=== PATIENT | female | born 1960 | race Caucasian/White ===

== ENCOUNTER 2019-11-28 12:33 | Outpatient (CLI) | payer BC, SELFPAY ==
--- NOTE | ~2019-11-28 | MMUS_ITS ---
EXAMINATION: MM diagnostic joy BI w yuri, US breast RT complete HISTORY: History of right breast cancer 10 years ago TECHNIQUE: ML, MLO and cc 3-D tomosynthesis images of both breasts including spot compression right T omosynthesis views were performed and synthetic 2-D images were generated. Rolled medial and rolled l ateral craniocaudal views. CAD analysis was submitted and interpreted. High resolution complete right breast ultrasound was performed. COMPARISON: 11/06/2018 bilateral diagnostic digital mammogram 09/07/2017 diagnostic left digital mammogram 08/08/2017 bilateral digital screening mammogram BREAST PARENCHYMAL COMPOSITION: There are scattered areas of fibroglandular density. FINDINGS: MAMMOGRAPHIC FINDINGS: There is chronic asymmetric increased density and architectural distortion on the right. Ultrasound e xamination of right breast was performed. Otherwise no interval suspicious mass or new architectural distortion or new skin thickening or retra ction is evident. No malignant calcification of either breast. ULTRASOUND: There is no evidence of focal abnormal solid or cystic lesion or suspicious shadowing of the right br east. IMPRESSION: 1. Status post right partial mastectomy for breast cancer approximately 10 years ago, with chronic as ymmetry and architectural distortion 2. Routine annual mammographic screening is recommended in addition to any other imaging as clinicall y appropriate in this patient with history of breast cancer. BI-RADS Category 2: Benign finding(s). Reviewed, dictated and finalized at location A. IMPRESSION: 1. Status post right partial mastectomy for breast cancer approximately 10 year s ago, with chronic asymmetry and architectural distortion 2. Routine annual mammographic screening is recommended in addition to any othe r imaging as clinically appropriate in this patient with history of breast canc er. BI-RADS Category 2: Benign finding(s).
== END 2019-11-28 12:34 | disposition home or self-care (01) ==
PROVIDERS: PCP Internal Medicine; Visit Provider Internal Medicine Medical Oncology
DX: C50.511 Malignant neoplasm of lower-outer quadrant of right female breast (principal); Z17.0 Estrogen receptor positive status [ER+]
CPT/HCPCS: 76641; 77062; 77066; G0279

== ENCOUNTER 2020-07-20 09:26 | Outpatient (CLI) | payer BC, SELFPAY ==
--- NOTE | ~2020-07-20 | CT_ITS ---
EXAMINATION: CT abdomen pelvis w con EXAM DATE: 07/20/2020 10:28 INDICATION: Right-sided breast cancer. TECHNIQUE: Spiral CT of the abdomen and pelvis was performed following intravenous injection of 100 m L Omnipaque 350. Axial, coronal and sagittal images were reviewed. The dose-length product (DLP) fo r this examination was 1670.67 mGy-cm. The exposure was tailored according to patient size (auto mA exposure control), and iterative reconstruction (ASIR) was used as additional dose reduction techniqu e. There is no prior study for comparison. FINDINGS: There is enhancing soft tissue in the upper aspect of the right epicardial fat, also along the internal mammary chain of lymph nodes, imaged portion measuring 3.4 x 2.3 cm, consistent with met astatic deposit. Chest CT should be obtained for further evaluation. The liver, spleen, adrenal glands and pancreas are unremarkable. There is a peripherally calcified 1 .5 cm gallstone, gallbladder otherwise unremarkable. Portal and splenic veins are patent. Kidneys e nhance symmetrically. There is no hydronephrosis. The uterus is unremarkable. The bladder is unr emarkable. Several pericecal lymph nodes, largest measuring 10 x 11 mm. The appendix is not positively visualized. There is no pericecal inflammatory change to suggest appe ndicitis. The stomach and small bowel are unremarkable. There is expected amount of colonic stool. No free intraperitoneal gas. The heart is normal in size. There are no pericardial or pleural e ffusions. The lung bases are unremarkable. Sclerotic region in the left iliac measuring 9 mm, anoth er in the right side of the sacrum measuring 6 mm. These could be bone islands but can't exclude oste oblastic disease. IMPRESSION: 1. Right epicardial mass, could be metastatic internal mammary chain lymph node. This is incompletel y imaged; recommend chest CT with contrast for further evaluation. 2. Several mesenteric pericecal lymph nodes probably reactive or mesenteric adenitis. Attention to t hese on follow-up exam. 3. Two small sclerotic pelvic bone regions, most likely bone islands. Attention to this on follow-up . Reviewed, dictated and finalized at location A. [employer] IMPRESSION: 1. Right epicardial mass, could be metastatic internal mammary chain lymph nod e. This is incompletely imaged; recommend chest CT with contrast for further ev aluation. 2. Several mesenteric pericecal lymph nodes probably reactive or mesenteric ad enitis. Attention to these on follow-up exam. 3. Two small sclerotic pelvic bone regions, most likely bone islands. Attentio n to this on follow-up.
[2020-07-20 10:20] LABS: Estimated Glomerular Filt Rate > 60
== END 2020-07-20 09:27 | disposition home or self-care (01) ==
PROVIDERS: PCP Internal Medicine; Visit Provider Internal Medicine Medical Oncology
DX: C50.511 Malignant neoplasm of lower-outer quadrant of right female breast (principal); Z17.0 Estrogen receptor positive status [ER+]; R52 Pain, unspecified; R11.0 Nausea; K80.80 Other cholelithiasis without obstruction
CPT/HCPCS: 74177; Q9967